=== PATIENT | female | born 1970 | race Caucasian/White ===

== ENCOUNTER → 2019-12-08 | Day surgery (SDC) | payer OTHER ==
[2019-12-05 15:31] LABS: BASOPHILS % 0.4 % (0.0-1.0); EOSINOPHILS # (AUTO) 0.1 (0.0-0.4); EOSINOPHILS % 1.3 % (0.0-6.0); HEMATOCRIT 40.1 % (34.2-44.1); HEMOGLOBIN 13.1 g/dL (12.0-16.0); LYMPHOCYTES # (AUTO) 1.5 (1.0-3.2); MEAN CORPUSCULAR HEMOGLOBIN 30.6 pg (28-32); MEAN CORPUSCULAR HGB CONC 32.7 g/dL (31-35); MEAN CORPUSCULAR VOLUME 93.7 fL (81-99); MONOCYTES # (AUTO) 0.4 (0.2-0.8); NEUTROPHILS # (AUTO) 3.4 (2.1-6.9); NEUTROPHILS % 62.1 % (38.7-80.0); PLATELET COUNT 132 x10e3/uL (140-360); RED BLOOD COUNT 4.28 x10e6/uL (3.6-5.1); RED CELL DISTRIBUTION WIDTH 13.4 % (11.7-14.4)
[2019-12-05 15:42] LABS: INR 0.96; PROTHROMBIN TIME 13.3 seconds (11.9-14.5)
[2019-12-05 15:43] LABS: PARTIAL THROMBOPLASTIN TIME 32.1 seconds (23.8-35.5)
[2019-12-05 15:51] LABS: ALANINE AMINOTRANSFERASE 25 IU/L (0-55); ALBUMIN 3.8 g/dL (3.5-5.0); ALBUMIN/GLOBULIN RATIO 1.2 (0.8-2.0); ALKALINE PHOSPHATASE 64 IU/L (40-150); ANION GAP 15.1 mmol/L (8-16); BLOOD UREA NITROGEN 13 mg/dL (7-26); BUN/CREATININE RATIO 18 (6-25); CALCIUM 9.3 mg/dL (8.4-10.2); CARBON DIOXIDE 25 mmol/L (22-29); CHLORIDE 109 mmol/L (98-107); CREATININE, SERUM 0.74 mg/dL (0.57-1.11); EST GLOMERULAR FILTRATION RATE > 60 ML/MIN (60-); GLUCOSE 92 mg/dL (74-118); POTASSIUM 4.1 mmol/L (3.5-5.1); SODIUM 145 mmol/L (136-145)
[~2019-12-08] MED LIST: DIAZEPAM5 MG PO; FENTANYL CITRATE/PF 100MCG/2 ML INJ ONE; FUROSEMIDE40 MG PO; HYDROXYZINE HCL25 MG PO; HYOSCYAMINE 0.125 MG TAB ONE; LACTULOSE20 GM/30 M PO; MIDAZOLAM HCL 5 MG/ML VIAL ONE; PROPOFOL IV EMULSION 10 MG/ML 50 ML VIAL ONE
--- OUTSIDE RECORDS SUMMARY | 2019-12-08 08:01 | XMS REPORT ---
Author Author [facility] Address Unknown Phone Unavailable Care Team Providers Care Invasive Cardiovascular Technologist Name Role Phone Unavailable Unavailable Problems This patient has no known problems. Allergies, Adverse Reactions, Alerts This patient has no known allergies or adverse reactions. Medications This patient has no known medications. Encounters Start Date/Time End Date/Time Encounter Type Admission Type Attending [facility] Facility Care Department Encounter ID 2020-01-02 00:00:00 2020-01-02 00:00:00 Outpatient [facility] [id number] 2019-08-11 00:00:00 2019-08-11 00:00:00 Outpatient [facility] [id number] 2019-08-01 00:00:00 2019-08-01 00:00:00 Outpatient [facility] [id number] 2019-07-29 00:00:00 2019-07-29 00:00:00 Outpatient [facility] [id number] 2019-07-25 00:00:00 2019-07-25 00:00:00 Outpatient [facility] [id number] 2019-07-03 00:00:00 2019-07-03 00:00:00 Outpatient [facility] [id number] 2019-06-30 00:00:00 2019-06-30 00:00:00 Outpatient [facility] [id number] 2019-06-16 00:00:00 2019-06-16 00:00:00 Outpatient [facility] [id number] 2019-06-11 09:23:19 2019-06-11 09:23:19 Outpatient [facility] [id number] 2019-06-09 09:10:59 2019-06-09 09:10:59 Outpatient [facility] [id number] 2019-05-30 14:27:24 2019-05-30 14:27:24 Outpatient [facility] [id number] 2019-05-22 00:00:00 2019-05-22 00:00:00 Outpatient [facility] [id number] 2019-05-20 08:14:15 2019-05-20 08:14:15 Outpatient [facility] [id number] 2019-05-08 13:12:03 2019-05-08 13:12:03 Outpatient [facility] [id number] 2019-05-06 00:00:00 2019-05-06 00:00:00 Outpatient [facility] [id number] 2019-05-02 15:00:56 2019-05-02 15:00:56 Outpatient [facility] [id number] 2019-05-02 13:53:40 2019-05-02 13:53:40 Outpatient [facility] [id number] 2019-05-02 00:00:00 2019-05-02 00:00:00 Outpatient [facility] [id number] 2019-04-11 11:27:42 2019-04-11 11:27:42 Outpatient [facility] [id number] 2019-04-10 10:17:39 2019-04-10 10:17:39 Outpatient [facility] [id number] 2019-04-10 00:00:00 2019-04-10 00:00:00 Outpatient [facility] [id number] 2019-04-09 08:31:11 2019-04-09 08:31:11 Outpatient [facility] [id number] 2019-04-08 13:54:24 2019-04-08 13:54:24 Outpatient [facility] [id number] 2019-04-08 12:15:18 2019-04-08 12:15:18 Outpatient [facility] [id number] 2019-04-03 00:00:00 2019-04-03 00:00:00 Outpatient [facility] [id number] 2019-03-31 00:00:00 2019-03-31 00:00:00 Outpatient [facility] [id number] 2019-03-27 14:53:55 2019-03-27 14:53:55 Outpatient [facility] [id number] 2019-03-27 00:00:00 2019-03-27 00:00:00 Outpatient [facility] [id number] 2019-03-03 00:00:00 2019-03-03 00:00:00 Outpatient [facility] [id number] 2019-02-17 10:47:54 2019-02-17 10:47:54 Outpatient [facility] [id number] 2019-02-17 10:17:57 2019-02-17 10:17:57 Outpatient [facility] [id number] 2019-02-17 09:10:12 2019-02-17 09:10:12 Outpatient [facility] [id number] 2019-02-17 00:00:00 2019-02-17 00:00:00 Outpatient [facility] [id number] 2019-01-17 08:15:29 2019-01-17 08:15:29 Outpatient [facility] [id number] 2018-12-30 14:55:20 2018-12-30 14:55:20 Outpatient [facility] [id number] 2018-12-26 00:00:00 2018-12-26 00:00:00 Outpatient [facility] [id number] 2018-12-19 00:00:00 2018-12-19 00:00:00 Outpatient [facility] [id number] 2018-12-19 00:00:00 2018-12-19 00:00:00 Outpatient [facility] [id number] 2018-11-20 00:00:00 2018-11-20 00:00:00 Outpatient [facility] [id number] 2018-11-14 00:00:00 2018-11-14 00:00:00 Outpatient [facility] [id number] 2018-11-01 00:00:00 2018-11-01 00:00:00 Outpatient [facility] [id number] 2018-10-29 00:00:00 2018-10-29 00:00:00 Outpatient [facility] [id number] 2018-10-22 00:00:00 2018-10-22 00:00:00 Outpatient [facility] [id number] 2018-10-21 00:00:00 2018-10-21 00:00:00 Outpatient [facility] [id number] 2018-10-21 00:00:00 2018-10-21 00:00:00 Outpatient [facility] [id number] 2018-10-08 00:00:00 2018-10-08 00:00:00 Outpatient [facility] [id number] 2018-09-24 15:02:14 2018-09-24 15:02:14 Outpatient [facility] [id number] 2018-09-24 00:00:00 2018-09-24 00:00:00 Outpatient [facility] [id number] 2018-09-23 00:00:00 2018-09-23 00:00:00 Outpatient [facility] [id number] 2018-09-23 00:00:00 2018-09-23 00:00:00 Outpatient [facility] [id number] 2018-09-19 16:45:11 2018-09-19 16:45:11 Outpatient [facility] [id number] 2018-09-19 15:42:49 2018-09-19 15:42:49 Outpatient [facility] [id number] 2018-09-13 00:00:00 2018-09-13 00:00:00 Outpatient [facility] [id number] 2018-09-13 00:00:00 2018-09-13 00:00:00 Outpatient [facility] [id number] 2018-09-12 00:00:00 2018-09-12 00:00:00 Outpatient [facility] [id number] 2018-09-11 00:00:00 2018-09-11 00:00:00 Outpatient [facility] [id number] 2018-09-10 00:00:00 2018-09-10 00:00:00 Outpatient [facility] [id number] 2018-09-09 15:37:23 2018-09-09 15:37:23 Outpatient [facility] [id number] 2018-09-06 11:09:31 2018-09-06 11:09:31 Outpatient [facility] [id number] 2018-09-06 00:00:00 2018-09-06 00:00:00 Outpatient [facility] [id number] 2018-09-05 00:00:00 2018-09-05 00:00:00 Outpatient [facility] [id number] 2018-08-27 00:00:00 2018-08-27 00:00:00 Outpatient [facility] [id number] 2018-08-26 00:00:00 2018-08-26 00:00:00 Outpatient [facility] [id number] 2018-08-21 00:00:00 2018-08-21 00:00:00 Outpatient [facility] [id number] 2018-08-19 00:00:00 2018-08-19 00:00:00 Outpatient [facility] [id number] 2018-08-13 00:00:00 2018-08-13 00:00:00 Outpatient [facility] [id number] 2018-08-13 00:00:00 2018-08-13 00:00:00 Outpatient [facility] [id number] 2018-08-02 00:00:00 2018-08-02 00:00:00 Outpatient [facility] [id number] 2018-08-01 00:00:00 2018-08-01 00:00:00 Outpatient [facility] [id number] 2018-07-31 00:00:00 2018-07-31 00:00:00 Outpatient [facility] [id number] 2018-07-29 10:29:33 2018-07-29 10:29:33 Outpatient [facility] [id number] 2018-07-26 15:28:25 2018-07-26 15:28:25 Outpatient [facility] [id number] 2018-07-11 00:00:00 2018-07-11 00:00:00 Outpatient [facility] [id number] 2018-06-29 00:00:00 2018-06-29 00:00:00 Outpatient [facility] [id number] 2018-06-25 00:00:00 2018-06-25 00:00:00 Outpatient [facility] [id number] 2018-06-25 00:00:00 2018-06-25 00:00:00 Outpatient [facility] [id number] 2018-06-20 11:04:09 2018-06-20 11:04:09 Outpatient [facility] [id number] 2018-06-20 09:00:15 2018-06-20 09:00:15 Outpatient [facility] [id number] 2018-06-20 08:57:29 2018-06-20 08:57:29 Outpatient [facility] [id number] 2018-05-23 00:00:00 2018-05-23 00:00:00 Outpatient [facility] [id number] 2018-04-29 00:00:00 2018-04-29 00:00:00 Outpatient [facility] [id number] 2018-04-16 00:00:00 2018-04-16 00:00:00 Outpatient [facility] [id number] 2018-04-04 09:42:00 2018-04-04 09:42:00 Outpatient [facility] [id number] 2018-04-04 09:12:17 2018-04-04 09:12:17 Outpatient [facility] [id number] 2018-03-25 00:00:00 2018-03-25 00:00:00 Outpatient [facility] [id number] 2018-03-21 00:00:00 2018-03-21 00:00:00 Outpatient [facility] [id number] 2018-03-11 00:00:00 2018-03-11 00:00:00 Outpatient [facility] [id number] 2018-03-07 00:00:00 2018-03-07 00:00:00 Outpatient [facility] [id number] 2018-03-06 09:56:28 2018-03-06 09:56:28 Outpatient [facility] [id number] 2018-02-28 15:42:43 2018-02-28 15:42:43 Outpatient [facility] [id number] 2018-02-19 11:21:03 2018-02-19 11:21:03 Outpatient [facility] [id number] 2018-02-19 10:50:54 2018-02-19 10:50:54 Outpatient [facility] [id number] 2018-02-19 06:58:00 2018-02-19 06:58:00 Outpatient [facility] [id number] 2018-02-19 00:00:00 2018-02-19 00:00:00 Outpatient [facility] [id number] 2018-02-18 00:00:00 2018-02-18 00:00:00 Outpatient [facility] [id number] 2018-02-15 12:50:38 2018-02-15 12:50:38 Outpatient [facility] [id number] 2018-02-15 09:52:01 2018-02-15 09:52:01 Outpatient [facility] [id number] 2018-02-15 00:00:00 2018-02-15 00:00:00 Outpatient [facility] [id number] 2018-02-14 00:00:00 2018-02-14 00:00:00 Outpatient [facility] [id number] 2018-02-11 14:20:58 2018-02-11 14:20:58 Outpatient [facility] [id number] 2018-02-04 14:53:57 2018-02-04 14:53:57 Outpatient [facility] [id number] 2018-02-04 14:44:55 2018-02-04 14:44:55 Outpatient [facility] [id number] 2018-01-24 11:43:20 2018-01-24 11:43:20 Outpatient [facility] [id number] 2018-01-24 11:37:55 2018-01-24 11:37:55 Outpatient [facility] [id number] 2018-01-23 00:00:00 2018-01-23 00:00:00 Outpatient [facility] [id number] 2018-01-21 10:45:12 2018-01-21 10:45:12 Outpatient [facility] [id number] 2018-01-21 00:00:00 2018-01-21 00:00:00 Outpatient [facility] [id number] 2018-01-11 17:15:44 2018-01-11 17:15:44 Outpatient [facility] [id number] 2018-01-11 09:09:43 2018-01-11 09:09:43 Outpatient [facility] [id number] 2018-01-10 14:41:14 2018-01-10 14:41:14 Outpatient [facility] [id number] 2018-01-09 12:51:19 2018-01-09 12:51:19 Outpatient [facility] [id number] 2018-01-09 00:00:00 2018-01-09 00:00:00 Outpatient [facility] [id number] 2018-01-09 00:00:00 2018-01-09 00:00:00 Outpatient [facility] [id number] 2018-01-08 23:20:20 2018-01-08 23:20:20 Outpatient [facility] [id number] 2018-01-08 21:46:45 2018-01-08 21:46:45 Outpatient [facility] [id number] 2018-01-08 20:50:58 2018-01-08 20:50:58 Outpatient [facility] [id number] 2018-01-08 18:16:56 2018-01-08 18:16:56 Emergency [facility] [id number] 2018-01-08 18:03:38 2018-01-08 18:03:38 Outpatient [facility] [id number] 2018-01-08 14:43:39 2018-01-08 14:43:39 Outpatient [facility] [id number] 2017-12-27 10:51:53 2017-12-27 10:51:53 Outpatient [facility] [id number] 2017-12-24 09:17:38 2017-12-24 09:17:38 Outpatient [facility] [id number] 2017-12-20 11:00:18 2017-12-20 11:00:18 Outpatient [facility] [id number] 2017-12-20 00:00:00 2017-12-20 00:00:00 Outpatient [facility] [id number] 2017-12-19 09:50:25 2017-12-19 09:50:25 Outpatient [facility] [id number] 2017-12-10 09:56:23 2017-12-10 09:56:23 Outpatient [facility] [id number] 2017-11-30 00:00:00 2017-11-30 00:00:00 Outpatient [facility] [id number]
[2019-12-08 10:35] VITALS: BP 129/88
--- NOTE | 2019-12-08 12:37 | Operative Report ---
DATE OF PROCEDURE: 12/08/2019 SURGEON: Jd Vazquez MD PROCEDURES: EGD with polypectomy and biopsies and colonoscopy with polypectomy. INDICATIONS FOR EGD: Heartburn, history of cirrhosis of the liver. INDICATIONS FOR COLONOSCOPY: Colorectal cancer screening. MEDICATIONS: The patient was done under MAC, please see anesthesiologist's note. PROCEDURE IN DETAIL: With the patient in the left lateral decubitus position, a flexible fiberoptic Olympus gastroscope was introduced into the esophagus under direct visualization without any difficulty. There was some grade 1 esophageal varices noted without active bleeding or stigmata of recent hemorrhage. The scope was then advanced with ease into the stomach, mucosa overlying the antrum and the body revealed some diffuse erythema and [id number]-wqnenmxx edema, and biopsies were obtained and sent to stain for H. pylori. There were also some changes compatible with portal hypertensive gastropathy. Pylorus was of normal contour and shape, was intubated with ease and the scope was advanced all the way to the second portion of the duodenum. The scope was then withdrawn slowly, a minute polyp was noted in the proximal second portion that was removed per the cold biopsy forceps. Also, biopsies were obtained from the proximal second portion and duodenal bulb to rule out sprue. The scope was then withdrawn back into the stomach and retroflexed, mucosa overlying the fundus and the cardia grossly appeared to be within normal limits. There were no fundal cardiac varices. The scope was then straightened out, it was subsequently withdrawn, and the patient tolerated the procedure well. IMPRESSION: 1. Grade 1 esophageal varices without active bleeding or stigmata of recent hemorrhage. 2. Gastritis, biopsied, biopsies sent to stain for Helicobacter pylori. 3. Portal hypertensive gastropathy, mild. 4. Duodenal polyp, proximal second portion, removed per the cold biopsy forceps. 5. Rule out sprue. PLAN: Follow up histology. Initiate Protonix 40 mg 1 p.o. q.a.m. before meals. The patient was then turned around and after adequate lubrication of the anal canal, a flexible fiberoptic Olympus colonoscope was inserted into the rectum with ease and advanced all the way to the cecum. It was then withdrawn slowly. Mucosa overlying the cecum, ascending colon, transverse colon, and descending colon grossly appeared to be within normal limits. Three minute polyps were removed per hot biopsy forceps from the sigmoid. The scope was then retroflexed into the distal rectum and small internal hemorrhoids were noted, none of which was actively bleeding. The scope was then straightened out, it was subsequently withdrawn, and the patient tolerated the procedure well. IMPRESSION: 1. Sigmoid polyps x2, hot biopsied. 2. Internal hemorrhoids, none actively bleeding. PLAN: Follow up histology. Initiate high-fiber, low-fat diet. Initiate high-fiber supplement. The patient might benefit from a followup colonoscopy in 5 years. Jd Vazquez MD [facility] [place] /[id number] cc: zA Lindsay MD
== END | disposition home or self-care (01) ==
LOC: OR 07:55
PROVIDERS: ATTEND Internal Medicine Gastroenterology
DX: Z12.11 Encounter for screening for malignant neoplasm of colon (principal); D13.2 Benign neoplasm of duodenum; K63.5 Polyp of colon; K29.50 Unspecified chronic gastritis without bleeding; K74.60 Unspecified cirrhosis of liver; I85.10 Secondary esophageal varices without bleeding; K76.6 Portal hypertension; K31.89 Other diseases of stomach and duodenum; K64.8 Other hemorrhoids; K72.90 Hepatic failure, unspecified without coma; B19.20 Unspecified viral hepatitis C without hepatic coma; R03.0 Elevated blood-pressure reading, without diagnosis of hypertension; F32.9 Major depressive disorder, single episode, unspecified; F41.9 Anxiety disorder, unspecified; F17.210 Nicotine dependence, cigarettes, uncomplicated; Z68.37 Body mass index [BMI] 37.0-37.9, adult
CPT/HCPCS: 36415; 43239; 45384; 80053; 81025; 85025; 85610; 85730; 93005; J2250; J2704; J3010; 43251; 45378

== ENCOUNTER → 2020-03-22 | Outpatient (CLI) | payer OTHER ==
[~2020-03-22] MED LIST changes: -FENTANYL CITRATE/PF 100MCG/2 ML INJ ONE; -HYOSCYAMINE 0.125 MG TAB ONE; -MIDAZOLAM HCL 5 MG/ML VIAL ONE; -PROPOFOL IV EMULSION 10 MG/ML 50 ML VIAL ONE
--- NOTE | 2020-03-22 10:06 | Diagnostic Imaging Report ---
EXAM: Right upper quadrant abdominal ultrasound INDICATION: Right upper quadrant pain COMPARISON: None. TECHNIQUE: Transverse and longitudinal images of the right upper quadrant abdomen were obtained FINDINGS: Liver: Size: 15.3 cm in the right midclavicular line, normal Appearance: Normal echogenicity, smooth contour Mass: No focal masses Gallbladder: Status post cholecystectomy. Bile Ducts: Intrahepatic Ducts: No dilatation Extrahepatic Ducts: Common bile duct measures 0.7 cm, mildly prominent, likely secondary to postcholecystectomy reservoir effect. Pancreas: Visualized portions are unremarkable. Kidney: The right kidney measures 10.4 x 4.7 x 5.5 cm without evidence of hydronephrosis or stone. Vessels: Aorta: Visualized portions are normal Inferior Vena Cava: Visualized portions are normal Main Portal Vein: 0.8 cm, normal size with hepatopetal flow. Free Fluid: No evidence of ascites. IMPRESSION: Status post cholecystectomy. Signed by: Dr. Tana Zimmerman MD on 03/22/2020 10:03 AM
== END ==
LOC: US 09:05
PROVIDERS: ATTEND Internal Medicine Gastroenterology
DX: K20.9 Esophagitis, unspecified (principal); K29.60 Other gastritis without bleeding
CPT/HCPCS: 76705; 82105; 82140

== ENCOUNTER 2020-04-01 15:42 | Emergency (ER) | payer OTHER ==
[~2020-04-01] VITALS: Ht 175.3 cm; Wt 117.9 kg
--- OUTSIDE RECORDS SUMMARY | 2020-04-01 15:45 | XMS REPORT | Clinical Summary ---
Author Author [facility] Organization [facility] Address Unknown Phone Unavailable Care Team Providers Care Fire Prevention Chief Name Role Phone Maite Noriega MD PCP Allergies No Known Allergies Medications End Date Status Medication Sig Dispensed Refills Start Date Active lactulose (CONSTULOSE) 10 Take 30 mL by 2838 mL 10 gram/15 mL oral mouth 3 times 8 solutionIndications: daily for 90 Other cirrhosis of liver days. Active gabapentin (NEURONTIN) Take 1 90 capsule 1 300 mg capsule by 9 capsuleIndications: mouth 3 times Closed trimalleolar daily. fracture of left ankle with delayed healing, subsequent encounter Active rifAXIMin (XIFAXAN) 550 Take 1 tablet 90 tablet 3 mg TabIndications: by mouth 2 9 hepatic encephalopathy times daily. Active sertraline (ZOLOFT) 100 Take 2 60 tablet 1 mg tabletIndications: GEORGI tablets by 9 (generalized anxiety mouth daily. disorder) Active mirtazapine (REMERON) 15 Take 1 tablet 30 tablet 1 mg tabletIndications: GEORGI by mouth at 9 (generalized anxiety bedtime disorder), Major nightly. depressive disorder, recurrent episode, moderate Active furosemide (LASIX) 20 mg Take 1 tablet 90 tablet 0 tabletIndications: Other by mouth 9 cirrhosis of liver daily. Active amoxicillin (AMOXIL) 500 Take four 16 capsule 0 0 mg capsuleIndications: capsules by 9 Prophylactic antibiotic mouth one hour prior to dental appointment. 06/04/2019 Discontinued (Reorder) furosemide (LASIX) 20 mg Take 1 tablet 90 tablet 0 tabletIndications: Other by mouth 8 cirrhosis of liver daily. 04/07/2019 Discontinued (Reorder) gabapentin (NEURONTIN) Take 1 90 capsule 1 300 mg capsule by 9 capsuleIndications: mouth 3 times Closed trimalleolar daily. fracture of left ankle with delayed healing, subsequent encounter 05/20/2019 Discontinued sertraline (ZOLOFT) 100 Take 2 180 tablet 1 /201 mg tabletIndications: GEORGI tablets by 9 (generalized anxiety mouth daily. disorder) 04/08/2019 Discontinued (Other) QUEtiapine (SEROQUEL) 50 take 1 tablet 90 tablet 2 12/30/201 mg tabletIndications: GEORGI by mouth 9 (generalized anxiety daily and 2 disorder) tablets at bed time. 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 05/20/2019 Discontinued hydrOXYzine (ATARAX) 50 Take 2 30 tablet 1 201 mg tabletIndications: GEORGI tablets by 9 (generalized anxiety mouth nightly disorder) at bedtime as needed for up to 30 days (sleep). 06/29/2019 hydrOXYzine (ATARAX) 25 Take 4 120 tablet 1 201 mg tabletIndications: GEORGI tablets by 9 (generalized anxiety mouth nightly disorder) at bedtime as needed for sleep. Active Problems Problem Noted Date Impaired functional mobility, balance, gait, and endu fadi 06/20/2018 Ankle fracture, bimalleolar, closed, left, with delay ed healing, subsequent 02/11/2018 encounter Overview: Added automatically from request for jinny iyer [id number] Red blood cell antibody positive; Anti-S 01/09/2018 Overview: POSITIVE BLOOD BANK ANTIBODY SCREEN These findings may cause a delay in obt aining compatible RBC products. A clinically signficant anti-S antibody is detected in this patient s plasma. This antibody is directed ag ainst the "big S" antigen of the MNS blood group system. This antibody is as sociated with hemolytic transfusion reactions and hemolytic disease of the fetus/ (HDFN). If RBC transfusion becomes necessary, christian hennessy contact the Blood Bank ([phone]) as soon as possible to i nitiate search for compatible units. Renan Bernal MD / [id number] Transfusion Medicine Chronic pain of left ankle 01/08/2018 Closed trimalleolar fracture of left ankle 8 Overview: Added automatically from request for stearns rgery [id number] Depression with anxiety 03/09/2016 Financial difficulty 03/09/2016 Unemployed 03/09/2016 Family estrangement 03/09/2016 Moderate episode of recurrent major depressive disord er 03/09/2016 Cannabis use disorder, moderate, in sustained remissi on 03/09/2016 Cluster B personality disorder 12/30/2015 Myopia with astigmatism and presbyopia 11/25/2015 Cirrhosis of liver 09/23/2015 Cirrhosis 04/13/2015 Hepatitis C 03/16/2015 Elevated AFP 03/16/2015 Gingival recession 06/05/2014 Dental decay 03/05/2013 Obesity 09/26/2012 No contraindication to venous thromboem bolism (VTE) prophylaxis Encounters Care Team Description Date Type Specialty Perry Hernandez DDS Prophylactic antibiotic (Primary Dx); Periodontitis 06/11/2019 Office Visit Dentistry Maite Noriega MD 06/09/2019 Ancillary Radiology Procedure Maite Noriega MD Other cirrhosis of liver 06/04/2019 Refill Family Practice [place] GEORGI (generalized anxiety disorder) (Prim dianne Dx); MDD (major depressive disorder), recurrent episode, moderate 05/30/2019 Office Visit Psychology Maite Noriega MD Kazakevich, Natalia, MD Major depressive disorder, recurrent epi sode, moderate (Primary Dx); GEORGI (generalized anxiety disorder) 05/20/2019 Office Visit Psychiatry Kathy Campos MD GEORGI (generalized anxiety disorder) 05/20/2019 Refill Psychiatry Seferino Cisneros, DUNG 05/20/2019 Nutrition Nutrition [place] 05/16/2019 Clinical Case Social Work Mgt Jose Manuel Piña, PT Chronic pain of left ankle (Primary Dx); Impaired functional mobility, balance, gait, and endurance 05/08/2019 Therapy Physical Therapy Idalia Chiu, BIOLOGY SPECIMEN TECHNICIAN Hepatic encephalopathy (Primary Dx) 05/05/2019 Orders Only Gastroenterology [place] GEORGI (generalized anxiety disorder) (Prim dianne Dx); MDD (major depressive disorder), recurrent episode, moderate 05/02/2019 Office Visit Psychology Maite Noriega MD Follow up (Primary Dx) 04/30/2019 Orders Only Family Practice Perry Hernandez DDS Visit for dental examination (Primary Dx ) 04/11/2019 Office Visit Dentistry Team, 1-Pt Jose Manuel Piña, PT Chronic pain of left ankle (Primary Dx); Impaired functional mobility, balance, gait, and endurance 04/10/2019 Therapy Physical Therapy [place] GEORGI (generalized anxiety disorder) (Prim dianne Dx); MDD (major depressive disorder), recurrent episode, moderate 04/09/2019 Office Visit Psychology Franco Smith MD Severe episode of recurrent major depres sive disorder, without psychotic features (Primary Dx); GEORGI (generalized anxiety disorder) 04/08/2019 Office Visit Psychiatry Idalia Chiu NP Other cirrhosis of liver 04/08/2019 Orders Only Gastroenterology Maite Noriega MD Closed trimalleolar fracture of left ank le with delayed healing, subsequent encounter 04/07/2019 Refill Family Practice after 04/01/2019 Immunizations Name Administration Dates Next Due Hepatitis A - Hepatitis B 02/17/2019, 09/09/2018 Influenza Vaccine 10/12/2015, 12/24/2014 Influenza Vaccine, 01/09/2018, 10/30/2017 (Def erred: Patient Refused) Seasonal, Injectable Influenza, 09/09/2018 Vaccine<FLUCELVAX>(Multi- Dose) Pneumoccoccal 10/12/2015 Tdap Tetanus, diphtheria, 06/20/2017 acellular pertussis Vaccine Family History Medical History Relation Name Comments Unknown Fam Hx Father Relation Name Status Comments Father Mother Social History Date Tobacco Use Types Packs/Day Years Used Former Smoker Cigarettes 0.1 10 Smokeless Tobacco: Never Used Tobacco Cessation: Counseling Given: No Drinks/Week oz/Week Comments Alcohol Use rarely Yes Food Insecurity Answer Date Recorded Within the past 12 months, you worried that your Never venkatesh e 12/30/2018 food would run out before you got money to buy more. Within the past 12 months, the food you bought Never true 12/30/2018 just didn't last and you didn't have mo rob to get more. Sex Assigned at Date Recorded Not on file Industry Job Start Date Occupation Not on file Not on file Not on file Travel End Travel History Travel Start No recent travel history available. Last Filed Vital Signs Reading Time Taken Comments Vital Sign 113/82 05/20/2019 8:14 AM CDT Blood Pressure 99 05/20/2019 8:14 AM CDT Pulse 37.6 C (99.7 F) 05/20/2019 8:14 AM CDT Temperature 18 05/20/2019 8:14 AM CDT Respiratory Rate - - Oxygen Saturation - - Inhaled Oxygen Concentration 116.6 kg (257 lb) 05/20/2019 8:14 AM CDT Weight 175.3 cm (5' 9") 05/20/2019 8:14 AM CDT Height 37.95 05/20/2019 8:14 AM CDT Body Mass Index Plan of Treatment Health Maintenance Due Date Last Done Comments Colorectal Cancer Scrn 2019 Annual (FIT/FOBT) Age 50 to 75 Breast Cancer Scrn 06/09/2020 06/09/2019, 016, 03/08/2015 (Yearly) Cervical Cancer Scrn (3 09/09/2021 09/09/2018, , 01/30/2013 Yrs) Goals Goal Patient Associated Recent Progress Patient-Stat Aut hor Goal Type Problems ed? 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 Pin to Bar 2 [id number] 11 x 350 Bar 1 [id number] 11x 400 Bar 1 [id number] Procedures Comments Procedure Name Priority Date/Time Associated Diag nosis MAMMOGRAM BILAT SCREEN Routine 06/09/2019 Follow up DIGITAL 10:06 AM CDT CBC (WITHOUT Routine 05/02/2019 Follow up DIFFERENTIAL) 1:54 PM CDT PT/INR Routine 04/08/2019 Other cirrhosis of liver 12:10 PM CDT LIVER PROFILE Routine 04/08/2019 Other cirrhosis of liver 12:10 PM CDT BASIC METABOLIC PANEL Routine 04/08/2019 Other ci rrhosis of liver 12:10 PM CDT AFP, TUMOR MARKER Routine 04/08/2019 Other cirrho sis of liver 12:10 PM CDT after 04/01/2019 Results * MAMMOGRAM BILAT SCREEN DIGITAL (06/09/2019 10:06 AM CDT) Specimen Impressions Performed At IMPRESSION: BENIGN SMS There is no mammographic evidence of ma lignancy. A 1 year screening mammogram is recommended. I have reviewed the study and agree wit h the findings in the report. This document has been electronically s igned. Michael Sánchez,olivier/penrad:06/09/2019 10:31:16 Sparker [employer] Patcher: Ms. Ramona soliman RT(R)(M), [facility] letter sent: Benign Exam Mammogram BI-RADS: 2 Benign G0202 z1 2.31 Narrative Performed At #[id number] - MAMMOGRAM BILAT SCREEN DIGITAL SMS BILATERAL DIGITAL SCREENING MAMMOGRAM W ITH CAD: 06/09/2019 CLINICAL: Screening for malignancy. Comparison is made to exams dated: and 03/08/2015 [facility]. The tissue of both breasts is heterogen eously dense. This may lower the sensitivity of mammography. Current study was also evaluated with a Computer Aided Detection (CAD) system. There are benign calcifications in both breasts. No significant masses, calcifications, or other findings are seen in either breast. There has been no significant interval change. Procedure Note Interface, Rad/Mammog In - 06/09/2019 1:13 PM CDT #[id number] - MAMMOGRAM BILAT SCREEN DIGITAL BILATERAL DIGITAL SCREENING MAMMOGRAM WITH CAD: 06/09/2019 CLINICAL: Screening for malignancy. Comparison is made to exams dated: 09/20/2016 and 03/08/2015 [facility]. The tissue of both breasts is heterogeneously dense. This may lower the sensitivity of mammography. Current study was also evaluated with a Computer Aided Detection (CAD) system. There are benign calcifications in both breasts. No significant masses, calcifications, or other findings are seen in either breast. There has been no significant interval change. IMPRESSION IMPRESSION: BENIGN There is no mammographic evidence of malignancy. A 1 year screening mammogram is recommended. I have reviewed the study and agree with the findings in the report. This document has been electronically signed. Michael Sánchez cp/nusrat:06/09/2019 10:31:16 [employer]arker [employer] Patcher: Ramonajoey Forte RT(R)(M), [facility] letter sent: Benign Exam Mammogram BI-RADS: 2 Benign G0202 z12.31 Performing Organization Address City/[facility] Ph one Number SMS * CBC (05/02/2019 1:54 PM CDT) WBC 4.0 (L) 4.5 - 11.0 K/uL [facility] RBC 3.97 (L) 4.20 - 5.40 M/uL [facility] Hemoglobin 12.0 12.0 - 16.0 g/dL [facility] Hematocrit 38.9 37.0 - 47.0 % [facility] MCV 98.0 (H) 82.0 - 92.0 fL [facility] MCH 30.2 27.0 - 32.0 pg [facility] MCHC 30.8 (L) 32.0 - 36.0 g/dL [facility] RDW 46.7 (H) 36.4 - 46.3 fL [facility] Platelet 140 (L) 150 - 400 K/uL [facility] Mean Platelet 11.3 9.4 - 12.4 fL [facility] Percent NRBC 0.0 % [facility] Specimen Blood Performing Organization Address [facility] Ph one Number [facility] [address] [place] [address] * AFP, Tumor Marker (04/08/2019 12:10 PM CDT) AFP Tumor Mrk 3.9 <9.0 ng/mL BT MAIN-STATION 1 Specimen Blood specimen (specimen) Performing Organization Address [facility] one Number [facility]IN-STATION 1 * PT/INR (04/08/2019 12:10 PM CDT) PT 13.3 11.8 - 15.0 Seconds BT MAIN-ST ATION 4 INR 1.0 BT MAIN[facility]ATION SUGGESTED THERAPEUTIC RANGES: 4 INR 2.0-3.0 for MODERATE INTENSITY ANTICOAGULATION INR 2.5-3.5 for HIGH INTENSITY ANTICOAGULATION Specimen Blood specimen (specimen) Performing Organization Address [facility] one Number [facility] BT MAIN-STATION 4 * Liver Profile (04/08/2019 12:10 PM CDT) Protein, Total, 6.7 6.0 - 8.3 g/dL BT MAIN-STATIO N Serum 1 Albumin 3.9 3.7 - 5.3 g/dL BT [facility]STATION 1 Bilirubin, 0.4 0.2 - 1.2 mg/dL BT MAIN-STATIO N Total 1 Alkaline 59 34 - 104 U/L BT [facility]ATION Phosphatase 1 AST (SGOT) 21 13 - 39 U/L BT MAIN-STATION 1 ALT 25 7 - 52 U/L BT MAIN[facility]STATION 1 D Bilirubin 0.1 0.0 - 0.2 mg/dL BT MAIN-STATIO N 1 Specimen Blood specimen (specimen) Performing Organization Address [facility] one Number MISYS BT MAIN-STATION 1 * Basic Metabolic Panel (04/08/2019 12:10 PM CDT) CO2 26 21 - 31 mmol/L BT MAIN-STATION 1 Chloride 106 98 - 107 mmol/L BT MAIN-STATIO N 1 Potassium 3.8 3.5 - 5.1 mmol/L BT MAIN-STATI ON 1 Sodium 141 136 - 145 mmol/L BT MAIN-STATI ON 1 Glucose 92 70 - 110 mg/dL BT MAIN-STATION 1 BUN 10 7 - 25 mg/dL BT MAIN[facility]STATION 1 Creatinine 0.60 0.6 - 1.2 mg/dL BT MAIN-STATIO N 1 Anion Gap 9 BT MAIN-STATION 1 Calcium 9.0 8.6 - 10.3 mg/dL BT MAIN-STATI ON 1 GFR, Estimated >60 mL/min/1.73 m2 BT MAIN-STATION 1 eGFR If Africn >60 mL/min/1.73 m2 BT MAIN-STATION Am 1 Specimen Blood specimen (specimen) Performing Organization Address City/State/Zipcode Ph one Number M[facility] BT MAIN-STATION 1 after 04/01/2019 Insurance Type Payer Benefit Subscriber ID Effective Phone Address Plan / Dates Group [place] [id number] SSI xxxxxxxxx 2018-P [phone] [id number] [place] [address] [facility] SELF-PAY SELF-PAY xxxxxxxxx 2019- [phone] [id number] [place] [address] Advance Directives Date Inactivated Comments Code Status Date Activated 01/11/2018 8:54 PM Full Code 01/09/2018 1:14 PM 01/09/2018 1:14 PM Full Code 01/09/2018 12:58 AM
--- OUTSIDE RECORDS SUMMARY | 2020-04-01 15:45 | XMS REPORT ---
Author Author [facility] t Organization [facility] t Address [address] [place] [address] Phone Unavailable Care Team Providers Care Latin Dance Instructor Name Role Phone Leann SAM, P Maite PCP ANGELIQUE MCFARLAND Attphys Unavailable David DDS, Cindy-Eric Attphys Leann SAM, Chris Nihita Attphys Rosario Orona Attphys Andres SAM, Kathy Attphys Blayne RN, Chiara Gentile Attphys Unavailable [place] Attphys Unavailable Wang PT, Perry Richard Attphys Unavailable Aram HEEL SORTER, A Idalia Attphys Team, 1-Pt Attphys Unavailable Luis SAM, Doris Gamez Attphys Payers Payer Name Policy Type Policy Number Effective Date Expiration Date S ource [place] RECIPIENTxxxxxxxx [id number].[address] [address] xxxxxxxxx 2018 00:00:00 [facility] ZVFZ-WVDXHAN-OSA UNSCREENEDxxxxxxxx [id number] [place] [address] xxxxxxxxx 2019 00:00:00 [facility] Problems Condition Name Condition Details Condition Category Status Onset Date Resolution Date Last Treatment Date Treating Clinician Comments Source Impaired functional mobility, balance, gait, and endur ance Impaired functional mobility, balance, gait, and endurance Disease Active 2018-06-20 00:00:00 [facility] Ankle fracture, bimalleolar, closed, lef t, with delayed healing, subsequent encounter Ankle fracture, bimalleolar, closed, lef t, with delayed healing, subsequent encounter Disease Active 2018-02-11 00:00:00 Overview: Added automatically from request for surgery [id number] [facility] Red blood cell antibody positive; 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 This antibody is directed against the "big S" antigen of the MNS blood group system. This antibody is associated with hemolytic transfusion reactions and hemolytic disease of the fetus/ (HDFN).If RBC transfusion becomes necessary, please contact the Blood Bank ([phone]) as soon as possible to initiate search for compatible units.Renan Bernal MD / [id number] Chronic pain of left ankle Chronic pain of left ankle Disease Active 2018-01-08 00:00:00 [facility] Closed trimalleolar fracture of left ankle Closed trim alleolar fracture of left ankle Disease Active 2018-01-08 00:00:00 Overview: Added automatically from request for surgery [id number] [facility] Depression with anxiety Depression with anxiety Disease Active 2016-03-09 00:00:00 [facility] Financial difficulty Financial difficulty Disease Active 00:00:00 [facility] Unemployed Unemployed Disease Active 2016-03-09 00:00:00 [facility] Family estrangement Family estrangement Disease Active 2016-03-09 00:00 :00 [facility] Moderate episode of recurrent major depressive disorde r Moderate episode of recurrent major depressive disorder Disease Active 2016-03-09 00:00:00 [facility] Cannabis use disorder, moderate, in sustained remissio n Cannabis use disorder, moderate, in sustained remission Disease Active 2016-03-09 00:00:00 [facility] Cluster B personality disorder Cluster B personality disorder Disea se Active 2015-12-30 00:00:00 [facility] ealth Myopia with astigmatism and presbyopia Myopia with astigmati sm and presbyopia Disease Active 2015-11-25 00:00:00 [facility] Cirrhosis of liver Cirrhosis of liver Disease Active 2015-09-23 00:00:0 0 [facility] Cirrhosis Cirrhosis Disease Active 2015-04-13 00:00:00 [facility] Hepatitis C Hepatitis C Disease Active 2015-03-16 00:00:00 [facility] Elevated AFP Elevated AFP Disease Active 2015-03-16 00:00:00 [facility] Gingival recession Gingival recession Disease Active 2014-06-05 00:00:0 0 [facility] Dental decay Dental decay Disease Active 2013-03-05 00:00:00 [facility] Obesity Obesity Disease Active 2012-09-26 00:00:00 [facility] No contraindication to venous thromboembolism (VTE) pr ophylaxis No contraindication to venous thromboembolism (VTE) prophylaxis Disease Active [facility] Allergies, Adverse Reactions, Alerts This patient has no known allergies or adverse reactions. Family History Family Member Diagnosis Comments Start Date Stop Date Source Natural father Unknown Fam Hx [facility] Social History Social Habit Start Date Stop Date Quantity Comments Source History of tobacco use Cigarette Smoker [facility] Sex Assigned At [facility] Cigarettes smoked current (pack per day) - Reported 00:00:00 2019-06-09 00:00:00 [facility] Cigarette pack-years 2019-06-09 00:00:00 2019-06-09 00:00:00 [facility] Alcohol intake 2019-06-09 00:00:00 2019-06-09 00:00:00 [facility] SDOH Food Worry 2018-12-30 00:00:00 2018-12-30 00:00:00 1 [facility] SDOH Food Scarcity 2018-12-30 00:00:00 2018-12-30 00:00:00 1 [facility] Alcohol Comment 2018-01-09 00:00:00 2018-01-09 00:00:00 rarely [facility] Smoking Status Start Date Stop Date Source Former smoker 2019-06-09 00:00:00 2019-06-09 00:00:00 [facility] Medications Ordered Medication Name Filled Medication Name Start Date Stop Da te Current Medication? Ordering Clinician Indication Dosage Frequency Signature (SIG) Comments Components Source amoxicillin (AMOXIL) 500 mg capsule 2019-06-11 00:00:00 Yes Prophylactic antibiotic Take four capsules b y mouth one hour prior to dental appointment. [facility] furosemide (LASIX) 20 mg tablet 2019-06-06 00:00:00 Yes Other cirrhosis of liver 20mg QD Take 1 tablet by mouth daily. [facility] sertraline (ZOLOFT) 100 mg tablet 2019-05-20 00:00:00 Yes GEORGI (generalized anxiety disorder) 200mg QD Take 2 tablets by mouth daily. [facility] mirtazapine (REMERON) 15 mg tablet 2019-05-20 00:00:00 Yes Major depressive disorder, recurrent episode, moderate 15mg Take 1 tablet by mouth at bedtime nightly. [facility] hydrOXYzine (ATARAX) 25 mg tablet 2019-05-20 00:00:00 2018 23:59:00 No GEORGI (generalized anxiety disorder) 100mg Take 4 tablets by mouth nightly at bedtime as needed for sleep. [facility] th hydrOXYzine (ATARAX) 50 mg tablet 2019-05-20 00:00:00 2018 00:00:00 No GEORGI (generalized anxiety disorder) 100mg Take 2 tablets by mouth nightly at bedtime as needed for up to 30 days (sleep). [facility] rifAXIMin (XIFAXAN) 550 mg Tab 2019-05-05 00:00:00 Yes hepatic encephalopathy 550mg Q.5D Take 1 tablet by mouth 2 times daily. [facility] gabapentin (NEURONTIN) 300 mg capsule 2019-04-08 00:00:00 Yes Closed trimalleolar fracture of left ankle with delayed healing, subsequent encounter 300mg Take 1 capsule by mouth 3 times daily. [facility] ARIPiprazole (ABILIFY) 5 mg tablet 2019-04-08 00:00:00 201 07-19-09 00:00:00 No Severe episode of recurrent major depres sive disorder, without psychotic features 2.5mg QD Take 1/2 of a tablet by mouth daily. [facility] hydrOXYzine (ATARAX) 50 mg tablet 2019-04-08 00:00:00 2018 00:00:00 No GEORGI (generalized anxiety disorder) 100mg Take 2 tablets by mouth nightly at bedtime as needed for up to 30 days (sleep). [facility] sertraline (ZOLOFT) 100 mg tablet 2018-12-30 00:00:00 2018 00:00:00 No GEORGI (generalized anxiety disorder) 200mg QD Take 2 tablets by mouth daily. [facility] QUEtiapine (SEROQUEL) 50 mg tablet 2018-12-30 00:00:00 201 07-17-28 00:00:00 No GEORGI (generalized anxiety disorder) take 1 tablet by mouth daily and 2 tablets at bed time. [facility] gabapentin (NEURONTIN) 300 mg capsule 2018-12-23 00:00 :00 2019-04-07 00:00:00 No Closed trimalleolar fracture of left ankle with delayed healing, subsequent encounter 300mg Take 1 capsule by mouth 3 times daily. [facility] lactulose (CONSTULOSE) 10 gram/15 mL oral solution 2018-08 00:00:00 Yes Other cirrhosis of liver 20g Take 30 mL by mouth 3 times daily for 90 days. [facility] furosemide (LASIX) 20 mg tablet 2018-09-06 00:00:00 00:00:00 No Other cirrhosis of liver 20mg QD Take 1 tablet by mouth daily. [facility] Immunizations Ordered Immunization Name Filled Immunization Name Date Status Comments Source Hepatitis A - Hepatitis B 2019-02-17 00:00:00 Completed [facility] Influenza, Vaccine<FLUCELVAX>(Multi-Dose) 2018-09-09 00:00 :00 Completed [facility] Hepatitis A - Hepatitis B 2018-09-09 00:00:00 Completed [facility] Influenza Vaccine, Seasonal, Injectable 2018-01-09 00:00:0 0 Completed [facility] Tdap Tetanus, diphtheria, acellular pertussis Vaccine 2017-06-20 00:00:00 Completed [facility] Influenza Vaccine 2015-10-12 00:00:00 Completed [facility] Pneumoccoccal 2015-10-12 00:00:00 Completed [facility] Influenza Vaccine 2014-12-24 00:00:00 Completed [facility] Vital Signs Vital Name Observation Time Observation Value Comments Source Systolic blood pressure 2019-05-20 08:14:00 113 mm[Hg] [facility] Diastolic blood pressure 2019-05-20 08:14:00 82 mm[Hg] [facility] Heart rate 2019-05-20 08:14:00 99 /min [facility]alt Body temperature 2019-05-20 08:14:00 37.61 Luis Jose Alfredo is [facility] Respiratory rate 2019-05-20 08:14:00 18 /min [facility] Body height 2019-05-20 08:14:00 175.3 cm [facility] Body weight 2019-05-20 08:14:00 116.574 kg [facility] BMI 2019-05-20 08:14:00 37.95 kg/m2 [facility] Procedures Procedure Date / Time Performed Performing Clinician [facility] e MAMMOGRAM BILAT SCREEN DIGITAL 2019-06-09 15:06:40 Maite Noriega [facility] CBC (WITHOUT DIFFERENTIAL) 2019-05-02 18:54:[address] [facility] AFP, TUMOR MARKER 2019-04-08 17:10:[address] [facility] BASIC METABOLIC PANEL 2019-04-08 17:10:00 [facility] LIVER PROFILE 2019-04-08 17:10:[address] [facility] PT/INR 2019-04-08 17:10:[address] [facility] Plan of Care Planned Activity Planned Date Details Comments Source Future Scheduled Test 2021-09-09 00:00:00 Cervical Cancer Sc rn (3 Yrs) [code = Cervical Cancer Scrn (3 Yrs)] [facility] Scheduled Test 2020-06-09 00:00:00 Breast Cancer Scrn (Yearly) [code = Breast Cancer Scrn (Yearly)] [facility] Scheduled Test 2019 00:00:00 Colorectal Cancer Scrn Annual (FIT/FOBT) Age 50 to 75 [code = Colorectal Cancer Scrn Annual (FIT/FOBT) Age 50 to 75] [facility] Encounters Start Date/Time End Date/Time Encounter Type Admission Type [facility] Care Department Encounter ID Source 2020-01-02 00:00:00 2020-01-02 00:00:00 Outpatient [facility] [id number] [facility] 2019-08-11 00:00:00 2019-08-11 00:00:00 Outpatient [facility] [id number] [facility] 2019-08-01 00:00:00 2019-08-01 00:00:00 Outpatient [facility] [id number] [facility] 2019-07-29 00:00:00 2019-07-29 00:00:00 Outpatient [facility] [id number] [facility] 2019-07-25 00:00:00 2019-07-25 00:00:00 Outpatient [facility] [id number] [facility] 2019-07-03 00:00:00 2019-07-03 00:00:00 Outpatient [facility] [id number] [facility] 2019-06-30 00:00:00 2019-06-30 00:00:00 Outpatient [facility] [id number] [facility] 2019-06-16 00:00:00 2019-06-16 00:00:00 Outpatient [facility] [id number] [facility] 2019-06-11 09:23:19 2019-06-11 09:23:19 Outpatient [facility] [id number] [facility] 2019-06-09 09:10:59 2019-06-09 09:10:59 Outpatient [facility] [id number] [facility] 2019-05-30 14:27:24 2019-05-30 14:27:24 Outpatient [facility] [id number] [facility] 2019-05-22 00:00:00 2019-05-22 00:00:00 Outpatient [facility] [id number] [facility] 2019-05-20 08:14:15 2019-05-20 08:14:15 Outpatient [facility] [id number] [facility] 2019-05-08 13:12:03 2019-05-08 13:12:03 Outpatient [facility] [id number] [facility] 2019-05-06 00:00:00 2019-05-06 00:00:00 Outpatient [facility] [id number] [facility] 2019-05-02 15:00:56 2019-05-02 15:00:56 Outpatient [facility] [id number] [facility] 2019-05-02 13:53:40 2019-05-02 13:53:40 Outpatient [facility] [id number] [facility] 2019-05-02 00:00:00 2019-05-02 00:00:00 Outpatient [facility] [id number] [facility] 2019-04-11 11:27:42 2019-04-11 11:27:42 Outpatient [facility] [id number] [facility] 2019-04-10 10:17:39 2019-04-10 10:17:39 Outpatient [facility] [id number] [facility] 2019-04-10 00:00:00 2019-04-10 00:00:00 Outpatient [facility] [id number] [facility] 2019-04-09 08:31:11 2019-04-09 08:31:11 Outpatient [facility] [id number] [facility] 2019-04-08 13:54:24 2019-04-08 13:54:24 Outpatient [facility] [id number] [facility] 2019-04-08 12:15:18 2019-04-08 12:15:18 Outpatient [facility] [id number] [facility] 2019-04-03 00:00:00 2019-04-03 00:00:00 Outpatient [facility] [id number] [facility] 2019-03-31 00:00:00 2019-03-31 00:00:00 Outpatient [facility] [id number] [facility] 2019-03-27 14:53:55 2019-03-27 14:53:55 Outpatient [facility] [id number] [facility] 2019-03-27 00:00:00 2019-03-27 00:00:00 Outpatient [facility] [id number] [facility] 2019-03-03 00:00:00 2019-03-03 00:00:00 Outpatient [facility] [id number] [facility] 2019-02-17 10:47:54 2019-02-17 10:47:54 Outpatient [facility] [id number] [facility] 2019-02-17 10:17:57 2019-02-17 10:17:57 Outpatient [facility] [id number] [facility] 2019-02-17 09:10:12 2019-02-17 09:10:12 Outpatient [facility] [id number] [facility] 2019-02-17 00:00:00 2019-02-17 00:00:00 Outpatient [facility] [id number] [facility] 2019-01-17 08:15:29 2019-01-17 08:15:29 Outpatient [facility] [id number] [facility] 2018-12-30 14:55:20 2018-12-30 14:55:20 Outpatient [facility] [id number] [facility] 2018-12-26 00:00:00 2018-12-26 00:00:00 Outpatient [facility] [id number] [facility] 2018-12-19 00:00:00 2018-12-19 00:00:00 Outpatient [facility] [id number] [facility] 2018-12-19 00:00:00 2018-12-19 00:00:00 Outpatient [facility] [id number] [facility] 2018-11-20 00:00:00 2018-11-20 00:00:00 Outpatient [facility] [id number] [facility] 2018-11-14 00:00:00 2018-11-14 00:00:00 Outpatient [facility] [id number] [facility] 2018-11-01 00:00:00 2018-11-01 00:00:00 Outpatient [facility] [id number] [facility] 2018-10-29 00:00:00 2018-10-29 00:00:00 Outpatient [facility] [id number] [facility] 2018-10-22 00:00:00 2018-10-22 00:00:00 Outpatient [facility] [id number] [facility] 2018-10-21 00:00:00 2018-10-21 00:00:00 Outpatient [facility] [id number] [facility] 2018-10-21 00:00:00 2018-10-21 00:00:00 Outpatient [facility] [id number] [facility] 2018-10-08 00:00:00 2018-10-08 00:00:00 Outpatient [facility] [id number] [facility] 2018-09-24 15:02:14 2018-09-24 15:02:14 Outpatient [facility] [id number] [facility] 2018-09-24 00:00:00 2018-09-24 00:00:00 Outpatient [facility] [id number] [facility] 2018-09-23 00:00:00 2018-09-23 00:00:00 Outpatient [facility] [id number] [facility] 2018-09-23 00:00:00 2018-09-23 00:00:00 Outpatient [facility] [id number] [facility] 2018-09-19 16:45:11 2018-09-19 16:45:11 Outpatient [facility] [id number] [facility] 2018-09-19 15:42:49 2018-09-19 15:42:49 Outpatient [facility] [id number] [facility] 2018-09-13 00:00:00 2018-09-13 00:00:00 Outpatient [facility] [id number] [facility] 2018-09-13 00:00:00 2018-09-13 00:00:00 Outpatient [facility] [id number] [facility] 2018-09-12 00:00:00 2018-09-12 00:00:00 Outpatient [facility] [id number] [facility] 2018-09-11 00:00:00 2018-09-11 00:00:00 Outpatient [facility] [id number] [facility] 2018-09-10 00:00:00 2018-09-10 00:00:00 Outpatient [facility] [id number] [facility] 2018-09-09 15:37:23 2018-09-09 15:37:23 Outpatient [facility] [id number] [facility] 2018-09-06 11:09:31 2018-09-06 11:09:31 Outpatient [facility] [id number] [facility] 2018-09-06 00:00:00 2018-09-06 00:00:00 Outpatient [facility] [id number] [facility] 2018-09-05 00:00:00 2018-09-05 00:00:00 Outpatient [facility] [id number] [facility] 2018-08-27 00:00:00 2018-08-27 00:00:00 Outpatient [facility] [id number] [facility] 2018-08-26 00:00:00 2018-08-26 00:00:00 Outpatient [facility] [id number] [facility] 2018-08-21 00:00:00 2018-08-21 00:00:00 Outpatient [facility] [id number] [facility] 2018-08-19 00:00:00 2018-08-19 00:00:00 Outpatient [facility] [id number] [facility] 2018-08-13 00:00:00 2018-08-13 00:00:00 Outpatient [facility] [id number] [facility] 2018-08-13 00:00:00 2018-08-13 00:00:00 Outpatient [facility] [id number] [facility] 2018-08-02 00:00:00 2018-08-02 00:00:00 Outpatient [facility] [id number] [facility] 2018-08-01 00:00:00 2018-08-01 00:00:00 Outpatient [facility] [id number] [facility] 2018-07-31 00:00:00 2018-07-31 00:00:00 Outpatient [facility] [id number] [facility] 2018-07-29 10:29:33 2018-07-29 10:29:33 Outpatient [facility] [id number] [facility] 2018-07-26 15:28:25 2018-07-26 15:28:25 Outpatient [facility] [id number] [facility] 2018-07-11 00:00:00 2018-07-11 00:00:00 Outpatient [facility] [id number] [facility] 2018-06-29 00:00:00 2018-06-29 00:00:00 Outpatient [facility] [id number] [facility] 2018-06-25 00:00:00 2018-06-25 00:00:00 Outpatient [facility] [id number] [facility] 2018-06-25 00:00:00 2018-06-25 00:00:00 Outpatient [facility] [id number] [facility] 2018-06-20 11:04:09 2018-06-20 11:04:09 Outpatient [facility] [id number] [facility] 2018-06-20 09:00:15 2018-06-20 09:00:15 Outpatient [facility] [id number] [facility] 2018-06-20 08:57:29 2018-06-20 08:57:29 Outpatient [facility] [id number] [facility] 2018-05-23 00:00:00 2018-05-23 00:00:00 Outpatient [facility] [id number] [facility] 2018-04-29 00:00:00 2018-04-29 00:00:00 Outpatient [facility] [id number] [facility] 2018-04-16 00:00:00 2018-04-16 00:00:00 Outpatient [facility] [id number] [facility] 2018-04-04 09:42:00 2018-04-04 09:42:00 Outpatient [facility] [id number] [facility] 2018-04-04 09:12:17 2018-04-04 09:12:17 Outpatient [facility] [id number] [facility] 2018-03-25 00:00:00 2018-03-25 00:00:00 Outpatient [facility] [id number] [facility] 2018-03-21 00:00:00 2018-03-21 00:00:00 Outpatient [facility] [id number] [facility] 2018-03-11 00:00:00 2018-03-11 00:00:00 Outpatient [facility] [id number] [facility] 2018-03-07 00:00:00 2018-03-07 00:00:00 Outpatient [facility] [id number] [facility] 2018-03-06 09:56:28 2018-03-06 09:56:28 Outpatient [facility] [id number] [facility] 2018-02-28 15:42:43 2018-02-28 15:42:43 Outpatient [facility] [id number] [facility] 2018-02-19 11:21:03 2018-02-19 11:21:03 Outpatient [facility] [id number] [facility] 2018-02-19 10:50:54 2018-02-19 10:50:54 Outpatient [facility] [id number] [facility] 2018-02-19 06:58:00 2018-02-19 06:58:00 Outpatient [facility] [id number] [facility] 2018-02-19 00:00:00 2018-02-19 00:00:00 Outpatient [facility] [id number] [facility] 2018-02-18 00:00:00 2018-02-18 00:00:00 Outpatient [facility] [id number] [facility] 2018-02-15 12:50:38 2018-02-15 12:50:38 Outpatient [facility] [id number] [facility] 2018-02-15 09:52:01 2018-02-15 09:52:01 Outpatient [facility] [id number] [facility] 2018-02-15 00:00:00 2018-02-15 00:00:00 Outpatient [facility] [id number] [facility] 2018-02-14 00:00:00 2018-02-14 00:00:00 Outpatient [facility] [id number] [facility] 2018-02-11 14:20:58 2018-02-11 14:20:58 Outpatient [facility] [id number] [facility] 2018-02-04 14:53:57 2018-02-04 14:53:57 Outpatient [facility] [id number] [facility] 2018-02-04 14:44:55 2018-02-04 14:44:55 Outpatient [facility] [id number] [facility] 2018-01-24 11:43:20 2018-01-24 11:43:20 Outpatient [facility] [id number] [facility] 2018-01-24 11:37:55 2018-01-24 11:37:55 Outpatient [facility] [id number] [facility] 2018-01-23 00:00:00 2018-01-23 00:00:00 Outpatient [facility] [id number] [facility] 2018-01-21 10:45:12 2018-01-21 10:45:12 Outpatient [facility] [id number] [facility] 2018-01-21 00:00:00 2018-01-21 00:00:00 Outpatient [facility] [id number] [facility] 2018-01-11 17:15:44 2018-01-11 17:15:44 Outpatient [facility] [id number] [facility] 2018-01-11 09:09:43 2018-01-11 09:09:43 Outpatient [facility] [id number] [facility] 2018-01-10 14:41:14 2018-01-10 14:41:14 Outpatient [facility] [id number] [facility] 2018-01-09 12:51:19 2018-01-09 12:51:19 Outpatient [facility] [id number] [facility] 2018-01-09 00:00:00 2018-01-09 00:00:00 Outpatient [facility] [id number] [facility] 2018-01-09 00:00:00 2018-01-09 00:00:00 Outpatient [facility] [id number] [facility] 2018-01-08 23:20:20 2018-01-08 23:20:20 Outpatient [facility] [id number] [facility] 2018-01-08 21:46:45 2018-01-08 21:46:45 Outpatient [facility] [id number] [facility] 2018-01-08 20:50:58 2018-01-08 20:50:58 Outpatient [facility] [id number] [facility] 2018-01-08 18:16:56 2018-01-08 18:16:56 Emergency [facility] [id number] [facility] 2018-01-08 18:03:38 2018-01-08 18:03:38 Outpatient [facility] [id number] [facility] 2018-01-08 14:43:39 2018-01-08 14:43:39 Outpatient [facility] [id number] [facility] 2017-12-27 10:51:53 2017-12-27 10:51:53 Outpatient [facility] [id number] [facility] 2017-12-24 09:17:38 2017-12-24 09:17:38 Outpatient [facility] [id number] [facility] 2017-12-20 11:00:18 2017-12-20 11:00:18 Outpatient [facility] [id number] [facility] 2017-12-20 00:00:00 2017-12-20 00:00:00 Outpatient [facility] [id number] [facility] 2017-12-19 09:50:25 2017-12-19 09:50:25 Outpatient [facility] [id number] [facility] 2017-12-10 09:56:23 2017-12-10 09:56:23 Outpatient [facility] [id number] [facility] 2017-11-30 00:00:00 2017-11-30 00:00:00 Outpatient [facility] [id number] [facility] Results Test Description Test Time Test Comments Results Result Comments Source LIVER 2020-03-22 10:00:00 [facility] [address] [address] Patient Name: ISSAC MENDOZA MR #: [id number] : 1970 Age/Sex: 49/F Req #: [id number] Adm Physician: Ordered by: ANGELIQUE MCFARLAND MD Report #: [id number] Location: Room/Bed: Procedure: [id number] US/US LIVER Exam Date: 03/22/20 Exam Time: 0948 REPORT STATUS: Signed EXAM: Right upper quadrant abdominal ultrasound INDICATION: Right upper quadrant pain COMPARISON: None. TECHNIQUE: Transverse and longitudinal images of the right upper quadrant abdomen were obtained FINDINGS: Liver: Size: 15.3 cm in the right midclavicular line, normal Appearance: Normal echogenicity, smooth contour Mass: No focal masses Gallbladder: Status post cholecystectomy. Bile Ducts: Intrahepatic Ducts: No dilatation Extrahepatic Ducts: Common bile duct measures 0.7 cm, mildly prominent, likely secondary to postcholecystectomy reservoir effect. Pancreas: Visualized portions are unremarkable. Kidney: The right kidney measures 10.4 x 4.7 x 5.5 cm without evidence of hydronephrosis or stone. Vessels: Aorta: Visualized portions are normal Inferior Vena Cava: Visualized portions are normal Main Portal Vein: 0.8 cm, normal size with hepatopetal flow. Free Fluid: No evidence of ascites. IMPRESSION: Status post cholecystectomy. Signed by: Dr. Tania Lin MD on 03/22/2020 10:03 AM Dictated By: TANIA LIN MD [id number] Transcribed By: TREE on 03/22/20 1003 COPY TO: ANGELIQUE MCFARLAND MD CBC 2019-05-03 07:19:00 Test Item WBC (test code = 6690-2) 4.0 K/uL 4.5-11 L RBC (test code = 789-8) 3.97 4.20- 5.40 M/uL L Hemoglobin (test code = 718-7) 12.0 g/dL 12-16 Hematocrit (test code = 4544-3) 38.9 % 37-47 MCV (test code = 787-2) 98.0 fL 82-92 H MCH (test code = 785-6) 30.2 pg 27-32 MCHC (test code = 786-4) 30.8 g/dL 32-36 L RDW (test code = 15199-6) 46.7 fL 36.4-46.3 H Platelet (test code = 777-3) 140 K/uL 150-400 L Mean Platelet Volume (test code = 81038-0) 11.3 fL 9.4-12.4 Percent NRBC (test code = 49150696) 0.0 % Lab Interpretation (test code = 32121-4) Abnormal [facility] Metabolic [id number] 20:02:00* Test Item Value Reference Range Interpretation Comments CO2 (test code = 2027-9) 26 mmol/L 21-31 Chloride (test code = 2075-0) 106 mmol/L 98-107 Potassium (test code = 2823-3) 3.8 mmol/L 3.5-5.1 Sodium (test code = 2951-2) 141 mmol/L 136-145 Glucose (test code = 2345-7) 92 mg/dL 70-110 BUN (test code = 3094-0) 10 mg/dL 7-25 Creatinine (test code = 2160-0) 0.60 mg/dL 0.6-1.2 Anion Gap (test code = 5071) 9 Calcium (test code = 49361-0) 9.0 mg/dL 8.6-10.3 GFR, Estimated (test code = 8250) >60 mL/min/1.73 m2 eGFR If Africn Am (test code = 8251) >60 mL/min/1.73 m2 [id number] 20:02:00* Test Item Value Reference Range Interpretation Comments Bilirubin, Total (test code = 2885-2) 0.4 mg/dL 0.2-1.2 Albumin (test code = 77707-7) 3.9 g/dL 3.7-5.3 Alkaline Phosphatase (test code = 6768-6) 59 U/L 34-104 AST (SGOT) (test code = 42050-3) 21 U/L 13-39 ALT (test code = 1743-4) 25 U/L 7-52 D Bilirubin (test code = 1968-7) 0.1 mg/dL 0-0.2 [facility] [id number] 19:55:00* Test Item Value Reference Range Interpretation Comments AFP Tumor Mrk (test code = 95659) 3.9 ng/mL <9.0 [id number] 16:12:00* Test Item Value Reference Range Interpretation Comments PT (test code = 5902-2) 13.3 11.8- 15.0 Seconds INR (test code = 5370) 1.0 SUGGESTED THERAPEUTIC RA NGES:INR 2.0-3.0 for MODERATE INTENSITY ANTICOAGULATIONINR 2.5-3.5 for HIGH INTENSITY ANTICOAGULATION [facility]
--- NOTE | 2020-04-01 16:29 | Emergency Department Note ---
History of Present Illnes History of Present Illness Chief Complaint: Extremity Trauma/Pain History of Present Illness This is a 49 year old female c/o r knee pain post slip fall today. Pt ambulated in the ED. Chief Complaint Comment fell c/o rt knee and back pain. walking steady gait and aaox4. 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 Any updates have been documented here. Past Medical History Recent Fever: No Clinical Suspicion of Infectio: No New/Unexplained Change in Ment: No Past Medical History: Liver Disease Past Surgical History: Cholecysctectomy, Appendectomy, Tubal Ligation Social History Smoking Cessation: Never Smoker Alcohol Use: None Any Illegal Drug Use: No TB Exposure/Symptoms: No Family History Family history of heart diseas: No Other Last Tetanus: unk Any Pre-Existing Lines (PICC,: No Review of Systems Review of Systems Constitutional: no symptoms EENTM: no symptoms Cardiovascular: no symptoms Respiratory: no symptoms Gastrointestinal: no symptoms Genitourinary: no symptoms Musculoskeletal: joint pain (r knee pain post slip fall ), other Neurological: no symptoms Psychological: no symptoms Endocrine: no symptoms Hematological/Lymphatic: no symptoms Review of other systems All other systems reviewed and negative. Physical Exam Related Data Allergies: Coded Allergies: No Known Allergies (Unverified , 12/05/19) Triage Vital Signs Vital Signs Date Time Temp Pulse Resp B/P (MAP) Pulse Ox O2 Delivery O2 Flow Rate FiO2 04/01/20 16:18 97.6 88 18 134/83 98 Vital signs reviewed: Yes Physical Exam CONSTITUTIONAL Constitutional: well-developed, well-nourished HENT HENT: normocephalic, atraumatic, oropharynx clear/moist, nose normal HENT L/R: left ext ear normal, right ext ear normal EYES Eyes: PERRL, conjunctivae normal NECK Neck: ROM normal PULMONARY Pulmonary: effort normal, breath sounds normal CARDIOVASCULAR Cardiovascular: regular rhythm, heart sounds normal, capillary refill normal, normal rate GASTROINTESTINAL Abdominal: soft, nontender, bowel sounds normal GENITOURINARY Genitourinary: exam deferred SKIN Skin: warm, dry MUSCULOSKELETAL Musculoskeletal: tenderness (r knee ), other (pt amb w/o diff no distal neuro d eficits no deformity ) NEUROLOGICAL Neurological: alert, oriented x 3, no gross motor or sensory deficits PSYCHOLOGICAL Psychological: mood/affect normal, judgement normal Results Imaging Imaging results reviewed: Yes Impressions Procedure: [id number] DX/KNEE RIGHT THREE VIEWS Exam Date: 04/01/20 Exam Time: 1718 REPORT STATUS: Signed Exam: Right Knee Series. History: Status post fall, knee pain, tailbone pain Comparison: None. Findings: 3 views of the right knee. There is normal bone mineralization. Linear lucency in the superior aspect of the patella seen only in the AP view, however, no definite cortical step-off is noted. The joint spaces are preserved. No abnormal soft tissue calcification or mass. No effusions or soft tissue swelling. Impression: 1. Linear lucency in the superior aspect of the patella may represent artifact, as it is only seen in a single view and is not associated with overlying soft tissue swelling or any effusion. Bony structures are otherwise unremarkable. Signed by: Dr. Virgen Conn M.D. on 04/01/2020 5:55 PM Dictated By: VIRGEN CONN MD 54 Transcribed By: TREE on 04/01/201754 Critical Care Time Subsequent provider I assumed direction of critical care for this patient from another provider of my specialty. Assessment & Plan Reassessment Reassessment time: 16:26 Reassessment 49y f presented to ed c/o r knee pain post slip fall - pt amb w/o diff - rad ordered pt medicated w/ ultram Pt NVI- ambulatory with a steady gait Assessment & Plan Final Impression: (1) Contusion (2) Right knee pain Assessment & Plan discussed rad results plan of care and f/u instructions 1. f/u w/ ortho in 1-2 days w/o fail 2. return to ed as needed 3. Tylenol and Motrin as needed 4. daryl wrap crutches 5. ultram Depart Disposition: HOME, SELF-CARE Last Vital Signs Date Time Temp Pulse Resp B/P (MAP) Pulse Ox O2 Delivery O2 Flow Rate FiO2 04/01/20 16:18 97.6 88 18 134/83 98 Home Meds Reported Medications Hydroxyzine Hcl (HYDROXYZINE HCL) 25 Mg Tablet, 25 MG PO HS PRN for SLEEP, #30 TAB 12/05/19 Diazepam (DIAZEPAM) 5 Mg Tablet, 10 MG PO 4XWEEK PRN for ANXIETY, #30 TAB 12/05/19 Lactulose (LACTULOSE) 20 Gm/30 Ml Solution, 30 ML PO 2XWEEK, EACH 12/05/19 Furosemide (FUROSEMIDE) 40 Mg Tablet, 40 MG PO 2XWEEK, #30 TAB 12/05/19 Medications in the ED Tramadol HCl 100 mg ONCE ONCE PO ; Start 04/01/20 at 16:30; Stop 04/01/20 at 16:31 CHITRA KINCAID, April 01, 2020 16:29
[2020-04-01] MEDS ORDERED: TRAMADOL HCL 50 MG TAB PO ONE (16:30)
--- NOTE | 2020-04-01 17:58 | Diagnostic Imaging Report ---
Exam: Right Knee Series. History: Status post fall, knee pain, tailbone pain Comparison: None. Findings: 3 views of the right knee. There is normal bone mineralization. Linear lucency in the superior aspect of the patella seen only in the AP view, however, no definite cortical step-off is noted. The joint spaces are preserved. No abnormal soft tissue calcification or mass. No effusions or soft tissue swelling. Impression: 1. Linear lucency in the superior aspect of the patella may represent artifact, as it is only seen in a single view and is not associated with overlying soft tissue swelling or any effusion. Bony structures are otherwise unremarkable. Signed by: Dr. [place] Cerda M.D. on 04/01/2020 5:55 PM
[2020-04-01 19:39] VITALS: BP 140/80
== END 2020-04-01 19:42 | disposition home or self-care (01) ==
LOC: ER 15:42
DX: M25.561 Pain in right knee (principal); S80.01XA Contusion of right knee, initial encounter; M54.9 Dorsalgia, unspecified; W01.0XXA Fall on same level from slipping, tripping and stumbling without subsequent striking against object, initial encounter; K76.9 Liver disease, unspecified
CPT/HCPCS: 99282

== ENCOUNTER 2020-10-18 14:43 | Observation (INO) | payer OTHER ==
[~2020-10-18] VITALS: Ht 175.3 cm; Wt 117.9 kg
[2020-10-18 16:53] LABS: BASOPHILS % 0.6 % (0.0-1.0); EOSINOPHILS % 0.2 % (0.0-6.0); HEMATOCRIT 41.2 % (34.2-44.1); HEMOGLOBIN 13.3 g/dL (12.0-16.0); LYMPHOCYTES # (AUTO) 1.1 (1.0-3.2); LYMPHOCYTES % 23.3 % (18.0-39.1); MEAN CORPUSCULAR HEMOGLOBIN 31.2 pg (28-32); MEAN CORPUSCULAR HGB CONC 32.3 g/dL (31-35); MEAN CORPUSCULAR VOLUME 96.7 fL (81-99); MONOCYTES # (AUTO) 0.4 (0.2-0.8); MONOCYTES % 8.3 % (4.4-11.3); NEUTROPHILS # (AUTO) 3.3 (2.1-6.9); NEUTROPHILS % 67.4 % (38.7-80.0); PLATELET COUNT 123 x10e3/uL (140-360); RED BLOOD COUNT 4.26 x10e6/uL (3.6-5.1); RED CELL DISTRIBUTION WIDTH 13.7 % (11.7-14.4)
[2020-10-18] MEDS ORDERED: ONDANSETRON HCL INJ 2MG/ML 2ML 2 MG/ML VIAL IV PRN (17:00)
[2020-10-18] MEDS ORDERED: MORPHINE SULFATE 2 MG/ML SYR 1ML IV PRN (17:00)
[2020-10-18] MEDS ORDERED: MORPHINE SULFATE INJ 4 MG/ML INJ 1ML IV PRN (17:00)
[2020-10-18 17:11] LABS: ANION GAP 9.2 mmol/L (8-16); BLOOD UREA NITROGEN 13 mg/dL (7-26); BUN/CREATININE RATIO 15 (6-25); CALCIUM 8.6 mg/dL (8.4-10.2); CARBON DIOXIDE 26 mmol/L (22-29); CHLORIDE 108 mmol/L (98-107); CREATININE, SERUM 0.86 mg/dL (0.57-1.11); EST GLOMERULAR FILTRATION RATE > 60 ML/MIN (60-); GLUCOSE 90 mg/dL (74-118); POTASSIUM 4.2 mmol/L (3.5-5.1); SODIUM 139 mmol/L (136-145)
[2020-10-18] MEDS: SODIUM CHLORIDE 0.9% 1000ML 1,000 ML IV SCH (17:39)
[2020-10-18] MEDS: CEFTRIAXONE SOD 1 GM/NS 50 ML 50 ML IV SCH (17:39)
[2020-10-18] MEDS ORDERED: DIPHENHYDRAMINE HCL INJ 50 MG/ML VIAL IV NR (17:45)
[2020-10-18 19:00] VITALS: BP 143/82
[2020-10-18 20:00] VITALS: BP 143/82
[2020-10-18] MEDS: KETOROLAC TROMETHAMINE 30 MG/ML VIAL IV PRN (20:43)
[2020-10-18 21:00] VITALS: BP 143/82
[2020-10-19] VITALS: BP 105/86
[2020-10-19] MEDS: KETOROLAC TROMETHAMINE 30 MG/ML VIAL IV PRN ×2 (03:03→09:31)
[2020-10-19 04:00] VITALS: BP_SYST 117; BP_SYST 153; BP_DIAS 75; BP_DIAS 77
[2020-10-19] MEDS: CEFTRIAXONE SOD 1 GM/NS 50 ML 50 ML IV SCH ×2 (05:04→17:22)
[2020-10-19] MEDS: SODIUM CHLORIDE 0.9% 1000ML 1,000 ML IV SCH ×3 (05:04→17:22)
[2020-10-19 08:46] VITALS: BP 115/67
[2020-10-19 08:54] VITALS: BP 115/67
[2020-10-19] MEDS ORDERED: SEVOFLURANE INHAL SOLN 250 ML PEN BTL ONE (12:25)
[2020-10-19] MEDS ORDERED: LIDOCAINE HCL 2% LOCAL INJ 5 ML SDV VIAL INJ ONE (12:25)
[2020-10-19] MEDS ORDERED: DEXAMETHASONE SOD PHOS INJ 4 MG/ML VIAL ONE (12:25)
[2020-10-19] MEDS ORDERED: PROPOFOL IV EMULSION 10 MG/ML 20 ML VIAL ONE (12:25)
[2020-10-19] MEDS ORDERED: ONDANSETRON HCL INJ 2MG/ML 2ML 2 MG/ML VIAL ONE (12:25)
[2020-10-19] MEDS ORDERED: IOPAMIDOL 300MG/ML 50ML INFUS..BTL IV ONE (12:37)
[2020-10-19] MEDS ORDERED: B&O 60MG R/S 60 MG SUPP PR ONE (12:38)
[2020-10-19] MEDS ORDERED: FENTANYL CITRATE/PF 100MCG/2 ML INJ ONE (12:38)
[2020-10-19] MEDS ORDERED: MIDAZOLAM HCL 2 MG/2 ML VIAL ONE (12:38)
[2020-10-19 13:06] VITALS: BP 130/67
[2020-10-19 17:06] VITALS: BP 109/55
== END 2020-10-19 19:17 | disposition home or self-care (01) ==
LOC: ER 15:16 → ERHOLD 16:52 → MED/SURG2 18:49
PROVIDERS: ADMIT Internal Medicine; ATTEND Internal Medicine
DX: T19.0XXA Foreign body in urethra, initial encounter (principal); K74.60 Unspecified cirrhosis of liver; F43.10 Post-traumatic stress disorder, unspecified; Z88.5 Allergy status to narcotic agent; E66.9 Obesity, unspecified; D69.6 Thrombocytopenia, unspecified; Z86.19 Personal history of other infectious and parasitic diseases; N81.10 Cystocele, unspecified; N81.6 Rectocele; N36.41 Hypermobility of urethra; Z68.38 Body mass index [BMI] 38.0-38.9, adult; Z20.828 Contact with and (suspected) exposure to other viral communicable diseases
CPT/HCPCS: 36415; 52315; 72170; 80048; 85025; 88300; 99284; G0378 ×2; J0696 ×2; J1100; J1200; J1885 ×2; J2001; J2250; J2270; J2405 ×2; J2704; J3010; J7030 ×2; U0002

== ENCOUNTER 2020-10-20 02:01 | Observation (INO) | payer OTHER ==
[~2020-10-20] VITALS: Ht 175.3 cm; Wt 120.2 kg
[2020-10-20 06:17] LABS: BASOPHILS % 0.1 % (0.0-1.0); HEMATOCRIT 36.6 % (34.2-44.1); HEMOGLOBIN 11.8 g/dL (12.0-16.0); LYMPHOCYTES # (AUTO) 0.9 (1.0-3.2); LYMPHOCYTES % 11.2 % (18.0-39.1); MEAN CORPUSCULAR HEMOGLOBIN 30.7 pg (28-32); MEAN CORPUSCULAR HGB CONC 32.2 g/dL (31-35); MEAN CORPUSCULAR VOLUME 95.3 fL (81-99); MONOCYTES # (AUTO) 0.5 (0.2-0.8); MONOCYTES % 6.7 % (4.4-11.3); NEUTROPHILS # (AUTO) 6.5 (2.1-6.9); NEUTROPHILS % 81.7 % (38.7-80.0); PLATELET COUNT 115 x10e3/uL (140-360); RED BLOOD COUNT 3.84 x10e6/uL (3.6-5.1); RED CELL DISTRIBUTION WIDTH 13.5 % (11.7-14.4)
[2020-10-20 06:32] LABS: ALANINE AMINOTRANSFERASE 53 IU/L (0-55); ALBUMIN 3.7 g/dL (3.5-5.0); ALKALINE PHOSPHATASE 68 IU/L (40-150); ANION GAP 10.5 mmol/L (8-16); BLOOD UREA NITROGEN 15 mg/dL (7-26); BUN/CREATININE RATIO 22 (6-25); CALCIUM 8.6 mg/dL (8.4-10.2); CARBON DIOXIDE 24 mmol/L (22-29); CHLORIDE 108 mmol/L (98-107); CREATININE, SERUM 0.69 mg/dL (0.57-1.11); EST GLOMERULAR FILTRATION RATE > 60 ML/MIN (60-); GLUCOSE 101 mg/dL (74-118); POTASSIUM 4.5 mmol/L (3.5-5.1); SODIUM 138 mmol/L (136-145)
[2020-10-20 07:04] LABS: CLARITY,URINE CLOUDY (CLEAR); COLOR,URINE RED (YELLOW)
[2020-10-20 07:05] LABS: BILIRUBIN,URINE SMALL (NEGATIVE); KETONES,URINE TRACE (NEGATIVE); LEUKOCYTE ESTERASE ,URINE TRACE (NEGATIVE); NITRITE,URINE NEGATIVE (NEGATIVE); PROTEIN,URINE DIPSTICK >=300 (NEGATIVE); URINE UROBILINOGEN 0.2 mg/dL (0.2 - 1)
[2020-10-20 07:18] LABS: RBC,URINE >50 /HPF (0-5); WBC,URINE (MAN) 21-50 /HPF (0-5)
[2020-10-20 07:19] LABS: BACTERIA,URINE MODERATE /HPF; EPITHELIAL CELLS,URINE FEW /LPF
[2020-10-20] MEDS ORDERED: KETOROLAC TROMETHAMINE 30 MG/ML VIAL IV PRN (07:30)
[2020-10-20] MEDS ORDERED: HYDRALAZINE HCL 20 MG/ML VIAL IV PRN (07:30)
[2020-10-20] MEDS ORDERED: MORPHINE SULFATE INJ 4 MG/ML INJ 1ML IV PRN (07:30)
[2020-10-20] MEDS ORDERED: HYDROXYZINE HCL 25 MG TAB PO PRN ×2 (07:30→09:00)
[2020-10-20] MEDS ORDERED: DIAZEPAM 5 MG TAB PO PRN (09:00)
[2020-10-20] MEDS: SODIUM CHLORIDE 0.9% 1000ML 1,000 ML IV SCH ×2 (09:20→18:32)
[2020-10-20] MEDS: FAMOTIDINE 20 MG/2 ML VIAL IV SCH ×2 (09:20→17:17)
[2020-10-20] MEDS ORDERED: SODIUM CHLORIDE 0.9% 50ML 50 ML ONE (09:20)
[2020-10-20] MEDS ORDERED: IOPAMIDOL 370 MG/ML 200 ML INFUS..BTL INJ ONE (09:20)
[2020-10-20] MEDS: CEFTRIAXONE SOD 1 GM/NS 50 ML 50 ML IV SCH (09:20)
[2020-10-20] MEDS: HYDROMORPHONE 1MG/1ML INJ IV PRN ×4 (09:22→21:16)
[2020-10-20] MEDS: LACTULOSE SYRUP 20 GM/30 ML UDC PO SCH (09:26)
[2020-10-20 11:09] VITALS: BP 142/88
[2020-10-20 11:14] VITALS: BP 142/88
[2020-10-20] MEDS: ONDANSETRON HCL INJ 2MG/ML 2ML 2 MG/ML VIAL IV PRN ×2 (13:48→18:11)
[2020-10-20 15:31] VITALS: BP 113/67
[2020-10-20 20:00] VITALS: BP 107/58
[2020-10-20 21:15] VITALS: BP 107/58
[2020-10-21] VITALS: BP 137/91
[2020-10-21 04:00] VITALS: BP 98/57
[2020-10-21 05:52] LABS: BASOPHILS % 0.2 % (0.0-1.0); HEMATOCRIT 32.5 % (34.2-44.1); HEMOGLOBIN 10.3 g/dL (12.0-16.0); LYMPHOCYTES # (AUTO) 1.3 (1.0-3.2); LYMPHOCYTES % 27.7 % (18.0-39.1); MEAN CORPUSCULAR HEMOGLOBIN 30.4 pg (28-32); MEAN CORPUSCULAR HGB CONC 31.7 g/dL (31-35); MEAN CORPUSCULAR VOLUME 95.9 fL (81-99); MONOCYTES # (AUTO) 0.4 (0.2-0.8); MONOCYTES % 8.1 % (4.4-11.3); NEUTROPHILS # (AUTO) 2.9 (2.1-6.9); NEUTROPHILS % 63.8 % (38.7-80.0); PLATELET COUNT 101 x10e3/uL (140-360); RED BLOOD COUNT 3.39 x10e6/uL (3.6-5.1); RED CELL DISTRIBUTION WIDTH 13.9 % (11.7-14.4)
[2020-10-21] MEDS: SODIUM CHLORIDE 0.9% 1000ML 1,000 ML IV SCH ×2 (06:24→13:30)
[2020-10-21 06:27] LABS: ALANINE AMINOTRANSFERASE 34 IU/L (0-55); ALBUMIN 3.1 g/dL (3.5-5.0); ALBUMIN/GLOBULIN RATIO 1.1 (0.8-2.0); ALKALINE PHOSPHATASE 61 IU/L (40-150); BLOOD UREA NITROGEN 13 mg/dL (7-26); BUN/CREATININE RATIO 21 (6-25); CARBON DIOXIDE 26 mmol/L (22-29); CHLORIDE 108 mmol/L (98-107); CREATININE, SERUM 0.62 mg/dL (0.57-1.11); EST GLOMERULAR FILTRATION RATE > 60 ML/MIN (60-); GLUCOSE 91 mg/dL (74-118); SODIUM 138 mmol/L (136-145)
[2020-10-21 07:38] VITALS: BP 115/68
[2020-10-21 08:15] VITALS: BP 115/68
[2020-10-21] MEDS: HYDROMORPHONE 1MG/1ML INJ IV PRN (08:34)
[2020-10-21] MEDS: FAMOTIDINE 20 MG/2 ML VIAL IV SCH (08:42)
[2020-10-21] MEDS: CEFTRIAXONE SOD 1 GM/NS 50 ML 50 ML IV SCH (08:42)
[2020-10-21] MEDS: LACTULOSE SYRUP 20 GM/30 ML UDC PO SCH (08:43)
[2020-10-21 11:36] VITALS: BP 135/66
[2020-10-21] MEDS ORDERED: ONDANSETRON HCL 4 MG ORAL DISINTEGRATING TAB PO PRN (12:15)
[2020-10-21] MEDS ORDERED: CIPRO500 MG PO (15:22)
[2020-10-21] MEDS ORDERED: PYRIDIUM100 MG PO (15:23)
[2020-10-21] MEDS ORDERED: FAMOTIDINE 20 MG TAB PO SCH (16:30)
== END 2020-10-21 16:05 | disposition home or self-care (01) ==
LOC: ER 02:17 → ERHOLD 05:08 → MED/SURG 11:07
PROVIDERS: ADMIT Internal Medicine; ATTEND Internal Medicine
DX: T19.1XXA Foreign body in bladder, initial encounter (principal); Z20.828 Contact with and (suspected) exposure to other viral communicable diseases; K74.60 Unspecified cirrhosis of liver; N39.0 Urinary tract infection, site not specified; E66.01 Morbid (severe) obesity due to excess calories; Z68.39 Body mass index [BMI] 39.0-39.9, adult; N81.10 Cystocele, unspecified; D68.9 Coagulation defect, unspecified
CPT/HCPCS: 36415 ×2; 51703; 74177; 80053 ×2; 81001; 85025 ×2; 87086; 99283; G0378 ×2; J0696 ×2; J1170 ×2; J2405; J3410; J7030; Q9967; U0002

== ENCOUNTER 2024-09-15 14:23 | Observation (INO) | payer OTHER ==
[~2024-09-15] VITALS: Ht 175.3 cm; Wt 120.2 kg
[~2024-09-15 14:23] MED LIST changes: +CIPRO500 MG PO; +PYRIDIUM100 MG PO
[2024-09-15 14:25] VITALS: TEMP 98
[2024-09-15] MEDS ORDERED: SODIUM CHLORIDE FLUSH 10 ML SYR IV PRN (14:45)
[2024-09-15 15:33] LABS: BASOPHILS % 0.2 % (0.0-1.0); EOSINOPHILS % 0.4 % (0.0-6.0); HEMOGLOBIN 14.4 g/dL (12.0-16.0); LYMPHOCYTES # (AUTO) 1.8 (1.0-3.2); LYMPHOCYTES % 17.2 % (18.0-39.1); MEAN CORPUSCULAR HEMOGLOBIN 30.8 pg (28-32); MEAN CORPUSCULAR HGB CONC 32.7 g/dL (31-35); MONOCYTES % 9.8 % (4.4-11.3); NEUTROPHILS # (AUTO) 7.4 (2.1-6.9); NEUTROPHILS % 72.1 % (38.7-80.0); PLATELET COUNT 134 x10e3/uL (140-360); RED BLOOD COUNT 4.68 x10e6/uL (3.6-5.1); RED CELL DISTRIBUTION WIDTH 13.3 % (11.7-14.4); WHITE BLOOD COUNT 10.32 x10e3/uL (4.8-10.8)
[2024-09-15 15:42] LABS: INR 0.98; PARTIAL THROMBOPLASTIN TIME 28.6 seconds (23.8-35.5); PROTHROMBIN TIME 13.5 seconds (11.9-14.5)
[2024-09-15 15:55] LABS: TROPONIN I < 0.05 ng/mL (0.0-0.40)
[2024-09-15 16:17] LABS: ALANINE AMINOTRANSFERASE 40 IU/L (0-55); ALBUMIN 4.5 g/dL (3.5-5.0); ALBUMIN/GLOBULIN RATIO 1.3 (0.8-2.0); ALKALINE PHOSPHATASE 59 IU/L (40-150); ANION GAP 18.7 mmol/L (8-16); BILIRUBIN,TOTAL 1.6 mg/dL (0.2-1.2); BLOOD UREA NITROGEN 17 mg/dL (7-26); BUN/CREATININE RATIO 20 (6-25); CALCIUM 10.5 mg/dL (8.4-10.2); CARBON DIOXIDE 21 mmol/L (22-29); CHLORIDE 102 mmol/L (98-107); CREATININE, SERUM 0.86 mg/dL (0.57-1.11); EST GLOMERULAR FILTRATION RATE 80 ML/MIN (>=60); GLUCOSE 106 mg/dL (74-118); POTASSIUM 3.7 mmol/L (3.5-5.1); SODIUM 138 mmol/L (136-145); TOTAL PROTEIN 8.1 g/dL (6.5-8.1)
[2024-09-15] MEDS ORDERED: IOPAMIDOL 370 MG/ML 100 ML INFUS..BTL INJ ONE (16:47)
[2024-09-15] MEDS ORDERED: ONDANSETRON HCL INJ 2MG/ML 2ML 2 MG/ML VIAL IV PRN (18:45)
[2024-09-15] MEDS ORDERED: Morphine 2mg Syringe 2 MG/ML SYR IV PRN (18:45)
[2024-09-15] MEDS ORDERED: SODIUM CHLORIDE FLUSH 10 ML SYR INJ PRN (18:45)
[2024-09-15 18:54] VITALS: PULSE 115; RESP 16
[2024-09-15] MEDS: HYDROMORPHONE 1MG/1ML INJ IV STA (19:16)
[2024-09-15] MEDS ORDERED: TRAMADOL HCL 50 MG TAB PO PRN (20:15)
[2024-09-15 20:45] VITALS: BP 116/68; PULSE 105; RESP 19; TEMP 98.4; O2SAT 100
[2024-09-15] MEDS ORDERED: HYDROMORPHONE 1MG/1ML INJ IV PRN (22:00)
[2024-09-16] VITALS: BP_SYST 131; BP_SYST 148; BP_DIAS 55; BP_DIAS 68; PULSE 67; PULSE 98; RESP 16; RESP 18; TEMP 98; TEMP 98.2; O2SAT 100; O2SAT 96
[2024-09-16] MEDS: ZOLPIDEM TARTRATE 5 MG TAB PO PRN (00:09)
[2024-09-16] MEDS: METOCLOPRAMIDE HCL 10 MG/2ML VIAL IV SCH (01:05)
[2024-09-16 04:00] VITALS: BP 96/55; PULSE 86; RESP 20; TEMP 97.6; O2SAT 100
[2024-09-16 06:31] LABS: BASOPHILS % 0.4 % (0.0-1.0); HEMATOCRIT 38.5 % (34.2-44.1); HEMOGLOBIN 12.3 g/dL (12.0-16.0); LYMPHOCYTES # (AUTO) 1.6 (1.0-3.2); LYMPHOCYTES % 28.7 % (18.0-39.1); MEAN CORPUSCULAR HEMOGLOBIN 31.1 pg (28-32); MEAN CORPUSCULAR HGB CONC 31.9 g/dL (31-35); MEAN CORPUSCULAR VOLUME 97.2 fL (81-99); MONOCYTES # (AUTO) 0.7 (0.2-0.8); MONOCYTES % 12.1 % (4.4-11.3); NEUTROPHILS # (AUTO) 3.2 (2.1-6.9); NEUTROPHILS % 58.4 % (38.7-80.0); PLATELET COUNT 93 x10e3/uL (140-360); RED BLOOD COUNT 3.96 x10e6/uL (3.6-5.1); WHITE BLOOD COUNT 5.47 x10e3/uL (4.8-10.8)
[2024-09-16 07:01] LABS: ALBUMIN 3.7 g/dL (3.5-5.0); ALBUMIN/GLOBULIN RATIO 1.2 (0.8-2.0); ANION GAP 10.6 mmol/L (8-16); BILIRUBIN,TOTAL 1.2 mg/dL (0.2-1.2); CALCIUM 9.5 mg/dL (8.4-10.2); CREATININE, SERUM 0.82 mg/dL (0.57-1.11); POTASSIUM 3.6 mmol/L (3.5-5.1); TOTAL PROTEIN 6.9 g/dL (6.5-8.1)
[2024-09-16 07:12] LABS: CHOL/HDL RATIO 3.8 (3.0-3.6)
[2024-09-16 09:49] VITALS: BP 123/75; PULSE 110; RESP 20; TEMP 98.3; O2SAT 98
[2024-09-16] MEDS ORDERED: LIDOCAINE HCL 2% LOCAL INJ 5 ML SDV VIAL INJ ONE (09:55)
[2024-09-16] MEDS ORDERED: PROPOFOL IV EMULSION 10 MG/ML 20 ML VIAL ONE (09:55)
[2024-09-16] MEDS ORDERED: MIDAZOLAM HCL 2 MG/2 ML VIAL ONE (09:55)
== END 2024-09-16 11:21 | disposition home or self-care (01) ==
LOC: ER 14:37 → ERHOLD 18:44 → MED/SURG2 20:16
PROVIDERS: ADMIT Internal Medicine; ATTEND Internal Medicine
DX: R16.1 Splenomegaly, not elsewhere classified (principal); B18.2 Chronic viral hepatitis C; K70.30 Alcoholic cirrhosis of liver without ascites; F10.21 Alcohol dependence, in remission; K76.0 Fatty (change of) liver, not elsewhere classified; E66.01 Morbid (severe) obesity due to excess calories; Z68.39 Body mass index [BMI] 39.0-39.9, adult; F41.9 Anxiety disorder, unspecified; I50.9 Heart failure, unspecified; Z88.5 Allergy status to narcotic agent
CPT/HCPCS: 36415 ×2; 71045; 71260; 74177; 80053 ×2; 80061; 83690; 83880; 84484; 85025 ×2; 85379; 85610; 85730; 94760; 99284; G0378 ×2; J1171; J2470; J2765; Q9967; J2003; J2250